=== PATIENT | female | born 1965 | race Caucasian/White ===

== ENCOUNTER → 2016-12-13 | Outpatient (CLI) | payer OTHER ==
[~2016-12-13] MED LIST: ACET-2723 PO; ASPI-935 PO; MELO-267 PO; NYST60PO11 TOP; [UNRECOGNIZED DRUG - CODE] PO
--- NOTE | 2016-12-13 10:01 | DI ---
LOCATION OF DICTATION: [facility] EXAM: CHEST, PA LATERAL HISTORY: ITS.REASON: R05 COUGH COMPARISON: No prior studies available for comparison. FINDINGS: The heart size is mildly enlarged. The mediastinal configuration is unremarkable. There are no consolidating opacities or pleural effusions. There is no evidence for a pneumothorax. The osseous structures are within normal limits. IMPRESSION: Mild cardiomegaly without evidence for CHF or pneumonia. .
== END ==
LOC: IMA 09:33
PROVIDERS: ATTEND Family Medicine
DX: R05 Cough (principal); I51.7 Cardiomegaly

== ENCOUNTER → 2016-12-23 | Outpatient (CLI) | payer OTHER | LOC: WC.BC 09:48 | DX: Z12.31 Encounter for screening mammogram for malignant neoplasm of breast (principal) | CPT/HCPCS: 77063; G0202 ==